=== PATIENT | male | born 2000 | race Caucasian/White ===

== ENCOUNTER 2023-06-21 15:37 | Emergency (ER) | payer OTHER ==
--- NOTE | 2023-06-21 17:17 | ED Physician Documentation ---
History of Present Illness - Stated complaint Stated Complaint: R THUMB INJ - Chief complaint Chief Complaint: Ext Problem - Additonal information Additional information: 22-year-old male who is right-hand dominant presents to the ER for evaluation of acute right thumb injury. He dropped a heavy jimenez on it today. He had immediate bruising under the nailbed and went to the [facility]. He reports an x-ray completed there showed no evidence of fracture but he was advised to come to the ER for trepanation. Tetanus is up-to-date. Review of Systems Musculoskeletal: reports: Extremity pain PD PAST MEDICAL HISTORY - Past Medical History Past Medical History: No - Past Surgical History Past Surgical History: Yes - Present Medications Home Medications: Ambulatory Orders Medication Instructions Recorded Confirmed No Known Home Medications 06/21/23 06/21/23 - Allergies Allergies/Adverse Reactions: Allergies Allergy/AdvReac Type Severity Reaction Status Date / Time No Known Drug Allergies Allergy Verified 06/21/23 16:05 - Social History Does the pt smoke?: No Smoking Status: Never smoker Does the pt drink ETOH?: No Does the pt have substance abuse?: No - Immunizations Immunizations are current?: Yes PD ED PE NORMAL - Extremities Extremities: Other (Right thumb with 100% subungual hematoma. Normal flexion extension at DIP joint. Mildly tender. No deformity.) Results - Vitals Vitals: Vital Signs - 24 hr 06/21/23 16:00 Temperature 36.9 C Heart Rate 75 Respiratory 15 Rate Blood Pressure 139/87 H O2 Saturation 99 Oxygen O2 Source Room air Procedures - General procedure General procedure: Trepanation of the right thumb subungual hematoma completed without anesthesia. Cautery was used to place 3 holes which drained immediately bright red blood. Hematoma appeared to be resolving. No complications. Departure - Departure Clinical Impression: Subungual hematoma of right thumb Qualifiers: Encounter type: initial encounter Qualified Code(s): S60.111A - Contusion of right thumb with damage to nail, initial encounter Condition: Stable Record reviewed to determine appropriate education?: Yes Comments: You developed a large bruise underneath your right thumb nail. Because of the amount of bruising you are at risk for the nail to separate from the nailbed. In order to minimize this we placed 3 holes in a procedure called trepanation to help drain the blood. I expect that this will make your pain markedly better over the next few days. In general you should keep a simple bandage and antibiotic ointment on the nail. It will simply grow out over time. If at any point you have any concerns of infection, fevers or milky drainage from the holes that were placed in the nail then please return immediately to the ER.
[2023-06-21 17:35] VITALS: BP 129/74; O2SAT 98
== END 2023-06-21 17:35 | disposition home or self-care (01) ==
LOC: ED 15:37
DX: S60.111A Contusion of right thumb with damage to nail, initial encounter (principal); W20.8XXA Other cause of strike by thrown, projected or falling object, initial encounter
CPT/HCPCS: 11740; 99282; 99283